=== PATIENT | female | born 1975 | race Caucasian/White ===

== ENCOUNTER → 2016-06-15 | Outpatient (CLI) | payer OTHER | LOC: FIMAGING 10:15 | PROVIDERS: ATTEND Family Medicine | DX: E04.1 Nontoxic single thyroid nodule (principal) ==

== ENCOUNTER → 2017-10-31 | Outpatient (CLI) | payer OTHER | LOC: FIMAGING 14:33 | PROVIDERS: ATTEND Family Medicine | DX: E04.1 Nontoxic single thyroid nodule (principal) ==

== ENCOUNTER → 2017-11-15 | Outpatient (CLI) | payer OTHER | LOC: BMCIMAGING 08:39 | PROVIDERS: ATTEND Family Medicine | DX: Z12.31 Encounter for screening mammogram for malignant neoplasm of breast (principal) ==